=== PATIENT | male | born 1970 | race Caucasian/White ===

== ENCOUNTER 2019-08-17 07:52 | Day surgery (SDC) | payer OTHER ==
[~2019-08-17] VITALS: Ht 182.9 cm; Wt 103.6 kg
[2019-08-17 08:14] VITALS: BP 125/72; PULSE 58; TEMP 98.2
[2019-08-17] MEDS ORDERED: FISH OIL PO (08:18)
[2019-08-17] MEDS ORDERED: ERGOCALCIFER50000 IU PO (08:18)
[2019-08-17] MEDS ORDERED: ALEVE 220MG220 MG PO (08:19)
[2019-08-17 09:35] VITALS: BP 126/85; PULSE 64; TEMP 98
--- NOTE | 2019-08-17 09:35 | NUR ---
PATIENT TO RECOVERY BAY 3 PER CART ACCOMPANIED BY ALEJANDRO HORVATH. AMBULATES TO CHAIR WITH 1 PERSONA ASSIST. MADE COMFORTABLE IN CHAIR. SITS HIGH FOWLERS, GIVEN WARM BLANKETS. VITAL SIGNS DONE, WNL. DENIES NAUSEA OR DIZZINESS, NO PAIN. REFRESHMENT OFFERED. COFFEE AND PUDDING GIVEN. CALL LIGHT WITHIN REACH. RECOVERY PROCESS EXPLAINED. RESTING COMFORTABLY.
[2019-08-17 09:45] VITALS: BP 118/88; PULSE 69
--- NOTE | 2019-08-17 09:45 | NUR ---
CONTINUES TO DO WELL POST PROCEDURE. NO NAUSEA. SIPS ON COFFEE. EATS PUDDING. NO NEEDS AT THIS TIME.
[2019-08-17 10:00] VITALS: BP 120/76; PULSE 67
--- NOTE | 2019-08-17 10:00 | NUR ---
PATIENT COMFORTABLE IN CHAIR. NO COMPLAINTS. DR AT BEDSIDE SPEAKS WITH PATIENT. DISCHARGE INSTRUCTIONS GIVEN TO PATIENT TO READ.
[2019-08-17 10:09] VITALS: TEMP 98
[2019-08-17 10:15] VITALS: BP 119/71; PULSE 63
--- NOTE | 2019-08-17 10:15 | NUR ---
PATIENT DENIES NAUSEA OR DIZZINESS. DISCHARGE INSTRUCTIONS EXPLAINED. PATIENT DENIES QUESTIONS, SIGNS AND HARD COPIES GIVEN. IV REMOVED FROM LEFT AC.
== END 2019-08-17 10:47 | disposition home or self-care (01) ==
LOC: SDCO 07:52
DX: Z12.11 Encounter for screening for malignant neoplasm of colon (principal); G47.33 Obstructive sleep apnea (adult) (pediatric); Z86.010 Personal history of colon polyps; Z79.899 Other long term (current) drug therapy; Z90.89 Acquired absence of other organs; Z99.89 Dependence on other enabling machines and devices; Z83.71 Family history of colonic polyps
CPT/HCPCS: J2704; J3010